=== PATIENT | male | born 1970 | race Caucasian/White ===

== ENCOUNTER 2024-02-10 11:23 | Observation (INO) | payer OTHER, BC, SELFPAY ==
[2024-02-10] VITALS (17 sets, daily range): BP systolic 107–134; BP diastolic 77–89; PULSE 58–91; RESP 12–24; TEMP 35.8–36.6; O2SAT 91–100; BMI 29.7
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
--- NOTE | ~2024-02-10 | CT_ITS ---
EXAMINATION: CT brain wo con DATE: 02/10/2024 12:09 INDICATION: Altered mental status TECHNIQUE: Computed tomography (CT) of the head was performed without intravenous contrast. Sagittal and coronal reconstructions were performed. The mA was adjusted according to patient size. Iterative reconstruction technique was employed. The dose-length product was 605.33 mGy-cm. COMPARISON: None FINDINGS: No acute intracranial hemorrhage, acute infarction or abnormal extra axial fluid collection. Ventricl es are normal and symmetric. Small macroscopic fat attenuation lipoma along the superior sagittal sin us. No other abnormal masses or mass effect. Changes of left intraocular lens replacement. The orient ation of the replaced lens does not appear to coincide with the dictation of the cornea suggesting po ssible displacement. Mild mucosal thickening in the paranasal sinuses. The mastoid air cells and midd le ear cavities are clear. There is some debris/cerumen at the right external auditory canal. IMPRESSION: 1. Normal brain. No acute intracranial process. 2. Suggestion of possible displacement or malalignment of a left intraocular lens replacement. Correl ate with ophthalmic exam. Reviewed, dictated and finalized at location A. IMPRESSION: 1. Normal brain. No acute intracranial process. 2. Suggestion of possible displacement or malalignment of a left intraocular le ns replacement. Correlate with ophthalmic exam.
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
--- NOTE | 2024-02-10 11:32 | ECG_ITS ---
SEE SCANNED COPY FOR CONFIRMED REPORT. MTDD
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
[2024-02-10 11:50] LABS: Hematocrit 45.1 % (42.0-52.0); Hemoglobin 14.4 g/dL (14.0-18.0); Mean Corpuscular HGB Conc 31.9 g/dl (32-36); Mean Corpuscular Hemoglobin 27.7 pg (26-34); Mean Corpuscular Volume 86.9 fl (80-100); Red Blood Count 5.19 M/mm3 (4.6-6.20)
[2024-02-10 11:51] LABS: Basophils Absolute Auto 0.1 K/mm3 (0.0-0.1); Basophils Percent Auto 0.6 % (0.2-1.2); Eosinophils Absolute Auto 0.3 K/mm3 (0-0.3); Eosinophils Percent Auto 3.9 % (0-4.4); Immature Granulocyte Absolute 0.34 K/mm3 (0.00-0.031); Immature Granulocyte Percent A 4.3 % (0-0.5); Lymphocytes Absolute Auto 1.99 K/mm3 (0.9-3.2); Mean Platelet Volume 9.5 fl (7.4-10.4); Monocytes Absolute Auto 0.4 K/mm3 (0.1-0.6); Monocytes Percent Auto 4.8 % (2.6-8.5); Neutrophils Absolute Auto 4.9 K/mm3 (1.3-6.7); Neutrophils Percent Auto 61.4 % (45.5-73.1); Platelet Count Result 221 k/mm3 (150-375); Red Cell Distribution Width 13.3 % (11.5-14.5)
--- NOTE | 2024-02-10 11:52 | PC.NURSE ---
Ccollar placed due to pt c/o neck pain.
[2024-02-10 11:59] LABS: Alanine Aminotransferase 21 U/L (6-50); Albumin Level 4.2 g/dL (3.5-5.1); Alkaline Phosphatase 91 U/L (38-126); Anion Gap 12 mmol/L (4-12); Aspartate Amino Transferase 24 U/L (17-59); Bilirubin,Total 0.5 mg/dL (0.2-1.3); Blood Urea Nitrogen 12 mg/dL (9-20); Calcium 8.7 mg/dL (8.4-10.2); Carbon Dioxide 22 mmol/L (22-30); Chloride 104 mmol/L (98-107); Estimated CRCL calculation 80 ml/min; Estimated Glomerular Filt Rate > 60; Glucose 235 mg/dL (65-110); Lipase 148 U/L (23-300); Sodium 138 mmol/L (137-145)
[2024-02-10 12:01] LABS: INR 0.9; Prothrombin Time 12.9 Seconds (11.1-14.7)
[2024-02-10 12:03] LABS: Partial Thromboplastin Time 23.2 Seconds (22.3-36.8)
[2024-02-10 12:05] LABS: Estimated CRCL calculation 74 ml/min; Estimated Glomerular Filt Rate 58
[2024-02-10 12:11] LABS: Troponin I < 0.012 ng/mL (0.000-0.034)
[2024-02-10 12:37] LABS: Lactic Acid Reflex 3.2 mmol/L (0.7-2.0)
--- NOTE | 2024-02-10 12:55 | PC.NURSE ---
came out to nurses station saying pt is getting sick. Pt dry heaving in bed. made aware.
[2024-02-10] MEDS: METOCLOPRAMIDE HCL INJ 10 MG/2 ML VIAL IV PUSH (12:58)
[2024-02-10] MEDS: SODIUM CHLORIDE 0.9% IV 1,000 ML 999 ML IV CONT (14:17)
--- NOTE | 2024-02-10 14:21 | PC.NURSE ---
Ccollar removed per EDP Dr. Patel
[2024-02-10 14:38] LABS: Amphetamine Screen Urine Negative (Negative); Barbiturate Screen Urine Negative (Negative); Benzodiazepines Screen Urine Negative (Negative); Cannabinoid Screen Urine Negative (Negative); Cocaine Screen Urine Negative (Negative); Methadone Screen Urine Negative (Negative); Opiate Screen Urine Negative (Negative); Phencyclidine Screen Urine Negative (Negative)
[2024-02-10 15:23] LABS: Reflex Lactic Acid Yes or No Add Lactic
[2024-02-10 15:46] LABS: Troponin I < 0.012 ng/mL (0.000-0.034)
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
--- NOTE | 2024-02-10 17:30 | ADMGEN ---
This patient, Zev Escalante, was admitted to IMU Room 231-01. Patient/family oriented to hospital policies and general routines including ID bracelet, bed and alarms, visiting hours, pain management, procedures, bathroom and other care routines, personal items, smoking policy, room service/diet, and visiting hours. Information on how to activate the Rapid Response Team has been discussed. Patient/Family are encouraged to report perceived risks to care and to ask questions if they do not understand what they are told or what they should do.
[2024-02-10 17:59] LABS: Lactic Acid 1.9 mmol/L (0.7-2.0)
[2024-02-10] MEDS: ACETAMINOPHEN 325 MG TABLET 650 MG PO (21:16)
[2024-02-10] MEDS: ONDANSETRON INJ 4 MG/2 ML VIAL IV PUSH (21:44)
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
[2024-02-11] VITALS (16 sets, daily range): BP systolic 102–135; BP diastolic 62–82; PULSE 48–77; RESP 12–18; TEMP 36.2–36.8; O2SAT 96–100
--- NOTE | 2024-02-11 | ECHO_ITS ---
Patient Info Name: Terry Escalante Age: 53 years : 1970 Gender: Male Ht: 72 in Wt: 244 lbs BSA: 2.40 m2 HR: 54 bpm BP: 109 / 71 mmHg Heart Rhythm: Sinus Rhythm Technical Quality: Fair Exam Date: 02/11/2024 12:16 PM Exam Location: Echo Lab Patient Status: Inpatient Admit Date: 02/10/2024 Staff Ordering Physician: Maximino Ashby DO Service Rig Operator: Preeti Medrano RDCS Attending Provider: Sun Sharpe MD Exam Type: CA echo doppler color flow Study Info Complete two-dimensional, color flow and Doppler transthoracic echocardiogram is performed. Summary 1. Complete two-dimensional, color flow and Doppler transthoracic echocardiogram is performed. 2. Left ventricular chamber dimension is normal. 3. Left ventricular systolic function is normal, estimated at 60-65%. 4. The left ventricular diastolic function is normal. 5. E/e' 4 is not elevated. 6. No pulmonary hypertension, estimated pulmonary arterial systolic pressure is 25 mmHg. Left Ventricle E/e' 4 is not elevated. Left ventricular chamber dimension is normal. Left ventricular systolic function is normal, estimated at 60-65%. The left ventricular diastolic function is normal. Right Ventricle Right ventricular systolic function is normal and with normal TAPSE 2.3 cm. Right ventricular chamber dimension is normal. Left Atria Left atrial chamber dimension is normal. Right Atria Right atrial chamber dimension is normal. Aortic Valve The aortic valve is trileaflet. There is no aortic valve stenosis. There is no aortic valve regurgitation. Pulmonic Valve There is no pulmonic regurgitation. Mitral Valve There is no mitral valve stenosis. There is no mitral valve regurgitation. Tricuspid Valve There is no tricuspid valve regurgitation. No pulmonary hypertension, estimated pulmonary arterial systolic pressure is 25 mmHg. Pericardium/Pleural There is no pericardial effusion. Inferior Vena Cava Normal inferior vena cava with >50% collapse upon inspiration consistent with normal right atrial pressure, 5 mmHg. Aorta The aortic root size at the sinus of Valsalva is normal. Left Ventricular Outflow Tract Name Value Normal LVOT 2D LVOT Diameter 2.4 cm LVOT Doppler LVOT Peak Gradient 3 mmHg LVOT Mean Gradient 2 mmHg LVOT VTI 15 cm LVOT VTI/AV VTI Ratio 0.8 LVOT Stroke Volume 67 ml LVOT CO 3.8 l/min LVOT CI 1.6 l/min/m2 Pulmonic Valve Name Value Normal RVOT Doppler RVOT Peak Gradient 2 mmHg PV Doppler PV Peak Gradient 4 mmHg Mitral Valve Name Value
--- NOTE | 2024-02-11 | EST_ITS ---
Patient Info Name: Zev Escalante Age: 53 years : 1970 Gender: Male Ht: 72 in Wt: 244 lbs BSA: 2.40 m2 HR: 53 bpm BP: 109 / 87 mmHg Heart Rhythm: Sinus Rhythm Exam Date: 02/11/2024 9:42 AM Exam Location: Echo Lab Patient Status: Outpatient Admit Date: 02/10/2024 Staff Ordering Physician: Maximino Ashby DO Attending Provider: Sun Sharpe MD Exercise Technologist: Maki Foley CT Exercise Physician: Maximino Ashby DO Exam Type: CA stress dee w NM Study Info Indications R55 - Syncope and collapse A regadenoson stress test was performed. Summary 1. 1. Negative lexiscan stress test for ischemic ST changes by ECG criteria. 2. 2. Stable hemodynamics throughout the test. 3. 3. Nuclear scan to follow and will be reported separately. Please correlate with it. 4. 4. Patient informed of the above results. Protocol: Lexiscan Stress ECG Details Stage: REST Duration (min): 1 min : 27 sec HR (bpm): 53 SBP (mmHg): 109 DBP (mmHg): 87 Stage: REST Duration (min): 12 min : 45 sec HR (bpm): 60 SBP (mmHg): 109 DBP (mmHg): 87 Stage: STAGE 1 Duration (min): 1 min : 0 sec HR (bpm): 78 SBP (mmHg): 114 DBP (mmHg): 70 Stage: RECOVERY Duration (min): 1 min : 0 sec HR (bpm): 80 SBP (mmHg): 114 DBP (mmHg): 70 Stage: RECOVERY Duration (min): 2 min : 0 sec HR (bpm): 76 SBP (mmHg): 114 DBP (mmHg): 70 Stage: RECOVERY Duration (min): 3 min : 0 sec HR (bpm): 72 SBP (mmHg): 121 DBP (mmHg): 72 Stage: RECOVERY Duration (min): 3 min : 2 sec HR (bpm): 72 SBP (mmHg): 121 DBP (mmHg): 72 Rest HR: 60 bpm Peak HR: 82 bpm Rest Sys BP: 109 mmHg Peak Sys BP: 121 mmHg Max Pred HR: 166 bpm % Max Pred HR: 49 % Target HR: 141 bpm Max RPP: 9,922 bpm*mmHg Termination Reason: Completed protocol Cardiac Symptoms: Shortness of breath Total Time: 1 min : 0 sec Rest Sesay BP: 87 mmHg Peak Sesay BP: 72 mmHg Total Dose: 0.4 mg Resting ECG Sinus rhythm. Stress ECG No ST changes. Arrhythmias None. Report Signatures
[2024-02-11] MEDS: ACETAMINOPHEN 325 MG TABLET 650 MG PO ×2 (03:20→11:45)
--- NOTE | 2024-02-11 07:40 | PM.PNCARD ---
Progress Note: A&P Assessment and Plan (1) Syncope: Qualifiers: Syncope type: unspecified Qualified Code(s): R55 - Syncope and collapse Code(s): R55 - Syncope and collapse Status: Acute Assessment and Plan: Differential includes arrhythmias, heart block, vasovagal, orthostasis, hypoglycemia, seizures, neurologic, etc. On telemetry with no arrhythmias or pauses. Obtain echo today. Obtain Lexiscan myoview today. If above are unremarkable, then will obtain 30 day event monitor upon discharge. (2) Dyslipidemia: Code(s): E78.5 - Hyperlipidemia, unspecified Status: Acute Assessment and Plan: On Lipitor at home. Subjective Date/time seen: 02/11/24 07:40 Interval history: He has headache. No chest pain or sob. Exam Const: General: cooperative, healthy appearing and comfortable Orientation/consciousness: oriented to person, oriented to place and oriented to time Resp: Auscultation: clear to auscultation bilaterally, no crackles, no rales, no rhonchi and no wheezes Cardio: Rate: regular rate Rhythm: regular rhythm Heart sounds: no murmurs Peripheral pulses: dorsalis pedis present Neuro: General: oriented to person, oriented to place and oriented to time Extrem: Right lower extremity: no edema Left lower extremity: no edema Objective Data Vital Signs Vital Signs: Vital Signs - 24 hr 02/10/24 11:21 02/10/24 11:48 02/10/24 12:26 Temperature 97.8 F Pulse Rate 84 79 80 Respiratory Rate 17 20 15 Blood Pressure 107/82 122/84 109/80 Pulse Oximetry 99 100 98 Oxygen Delivery Room Air Room Air 02/10/24 13:25 02/10/24 14:18 02/10/24 12:30 Temperature Pulse Rate 79 75 76 Respiratory Rate 15 20 12 Blood Pressure 118/89 Pulse Oximetry 98 100 99 Oxygen Delivery 02/10/24 13:15 02/10/24 14:19 02/10/24 14:31 Temperature Pulse Rate 69 70 74 Respiratory Rate 18 15 17 Blood Pressure 118/89 108/82 108/79 Pulse Oximetry 91 96 100 Oxygen Delivery 02/10/24 14:46 02/10/24 15:49 02/10/24 16:00 Temperature Pulse Rate 84 73 76 Respiratory Rate 19 15 13 Blood Pressure 112/77 Pulse Oximetry 94 98 98 Oxygen Delivery 02/10/24 17:10 02/10/24 18:00 02/10/24 20:10 Temperature 96.4 F L 97.1 F L Pulse Rate 91 74 69 Respiratory Rate 24 H 18 Blood Pressure 134/89 114/77 Pulse Oximetry 98 99 Oxygen Delivery 02/10/24 20:00 02/10/24 20:00 02/10/24 22:00 Temperature Pulse Rate 66 66 58 L Respiratory Rate 18 Blood Pressure Pulse Oximetry 99 Oxygen Delivery Room Air 02/11/24 00:09 02/11/24 00:00 02/11/24 00:00 Temperature 97.1 F L Pulse Rate 57 L 53 L 53 L Respiratory Rate 18 18 Blood Pressure 102/62 Pulse Oximetry 96 96 Oxygen Delivery Room Air 02/11/24 02:00 02/11/24 03:27 02/11/24 03:30 Temperature 97.6 F Pulse Rate 52 L 48 L 56 L Respiratory Rate 18 Blood Pressure 109/71 Pulse Oximetry 99 Oxygen Delivery 02/11/24 03:30 02/11/24 06:00 Temperature Pulse Rate 56 L 54 L Respiratory Rate 18 Blood Pressure Pulse Oximetry 99 Oxygen Delivery Room Air Intake/Output Intake/Output: Intake & Output 02/08/24 02/09/24 02/10/24 02/11/24 23:59 23:59 23:59 23:59 Intake Total 1250 100 Balance 1250 100 Meds/Results Medications: Active Medications Generic Name Dose Route Start Last Admin Trade Name Freq PRN Reason Stop Dose Admin Acetaminophen 650 mg 02/11/24 02:43 02/11/24 03:20 Acetaminophen 325 Mg Tablet PO 650 mg Q4H PRN Administration Mild Pain (1-3) or Fever Buspirone HCl 10 mg 02/11/24 09:00 Buspirone Hcl 10 Mg Tablet PO DAILY [facility] Enoxaparin Sodium 40 mg 02/11/24 09:00 Enoxaparin 40 Mg/0.4 Ml Syringe SUB-Q DAILY [facility] Hydroxyzine HCl 50 mg 02/11/24 09:00 Hydroxyzine Hcl 25 Mg Tablet PO DAILY [facility] Ibuprofen 600 mg 02/11/24 02:39 Ibuprofen 600 Mg Tablet PO Q6H PRN Pain Rated 4-6
[2024-02-11] MEDS: lamoTRIgine 100 MG TABLET PO (08:56)
[2024-02-11] MEDS: PANTOPRAZOLE 40 MG TABLET PO (08:56)
[2024-02-11] MEDS: busPIRone HCL 10 MG TABLET PO (08:57)
[2024-02-11] MEDS: SERTRALINE HCL 50 MG TABLET PO (08:57)
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
[2024-02-11] MEDS: hydrOXYzine HCL 25 MG TABLET 50 MG PO (11:40)
[2024-02-11 11:46] LABS: Hematocrit 42.9 % (42.0-52.0); Hemoglobin 13.7 g/dL (14.0-18.0); Mean Corpuscular HGB Conc 31.9 g/dl (32-36); Mean Corpuscular Volume 87.6 fl (80-100); Mean Platelet Volume 9.2 fl (7.4-10.4); Platelet Count Result 216 k/mm3 (150-375); Red Cell Distribution Width 13.6 % (11.5-14.5); White Blood Count 9.5 K/mm3 (4.5-10.0)
[2024-02-11 11:57] LABS: Anion Gap 8 mmol/L (4-12); Blood Urea Nitrogen 11 mg/dL (9-20); Carbon Dioxide 28 mmol/L (22-30); Chloride 102 mmol/L (98-107); Estimated CRCL calculation 105 ml/min; Estimated Glomerular Filt Rate > 60; Potassium 3.7 mmol/L (3.4-5.0); Sodium 138 mmol/L (137-145)
[2024-02-11 11:58] LABS: Alanine Aminotransferase 22 U/L (6-50); Albumin Level 4.5 g/dL (3.5-5.1); Alkaline Phosphatase 88 U/L (38-126); Aspartate Amino Transferase 27 U/L (17-59); Bilirubin,Total 0.5 mg/dL (0.2-1.3); Glucose 119 mg/dL (65-110); Magnesium 2.2 mg/dL (1.6-2.3)
[2024-02-11] MEDS: IBUPROFEN 600 MG TABLET PO (20:45)
[2024-02-12] VITALS (7 sets, daily range): BP systolic 114–131; BP diastolic 76–92; PULSE 49–71; RESP 17–18; TEMP 36.6; O2SAT 97–100
[2024-02-12 04:40] LABS: Hematocrit 41.8 % (42.0-52.0); Mean Corpuscular HGB Conc 31.1 g/dl (32-36); Mean Corpuscular Hemoglobin 27.7 pg (26-34); Mean Corpuscular Volume 89.1 fl (80-100); Mean Platelet Volume 9.4 fl (7.4-10.4); Platelet Count Result 213 k/mm3 (150-375); Red Blood Count 4.69 M/mm3 (4.6-6.20); Red Cell Distribution Width 13.3 % (11.5-14.5); White Blood Count 7.7 K/mm3 (4.5-10.0)
[2024-02-12 05:00] LABS: Alanine Aminotransferase 18 U/L (6-50); Albumin Level 3.9 g/dL (3.5-5.1); Alkaline Phosphatase 80 U/L (38-126); Anion Gap 5 mmol/L (4-12); Aspartate Amino Transferase 22 U/L (17-59); Bilirubin,Total 0.4 mg/dL (0.2-1.3); Blood Urea Nitrogen 12 mg/dL (9-20); Calcium 8.8 mg/dL (8.4-10.2); Carbon Dioxide 30 mmol/L (22-30); Chloride 105 mmol/L (98-107); Estimated CRCL calculation 95 ml/min; Estimated Glomerular Filt Rate > 60; Glucose 102 mg/dL (65-110); Potassium 4.2 mmol/L (3.4-5.0); Sodium 140 mmol/L (137-145)
--- NOTE | 2024-02-12 07:38 | PM.PNCARD ---
Progress Note: A&P Assessment and Plan (1) Syncope: Qualifiers: Syncope type: unspecified Qualified Code(s): R55 - Syncope and collapse Code(s): R55 - Syncope and collapse Status: Acute Assessment and Plan: Probably breakthrough seizure. Differential includes arrhythmias, heart block, vasovagal, orthostasis, hypoglycemia, seizures, neurologic, etc. On telemetry with no arrhythmias or pauses. 02/11/24 Echo: EF60-65%. 02/11/24 Lexiscan myoview is normal. 30 day event monitor placed. Neurology consulted. No further cardiac workup. May d/c home from cardiology standpoint and f/u in 4 weeks. (2) Dyslipidemia: Code(s): E78.5 - Hyperlipidemia, unspecified Status: Acute Assessment and Plan: On Lipitor at home. Subjective Date/time seen: 02/12/24 07:38 Interval history: No chest pain or sob. Exam Const: General: cooperative, healthy appearing and comfortable Orientation/consciousness: oriented to person, oriented to place and oriented to time Resp: Auscultation: clear to auscultation bilaterally, no crackles, no rales, no rhonchi and no wheezes Cardio: Rate: regular rate Rhythm: regular rhythm Heart sounds: no murmurs Peripheral pulses: dorsalis pedis present Neuro: General: oriented to person, oriented to place and oriented to time Extrem: Right lower extremity: no edema Left lower extremity: no edema Objective Data Vital Signs Vital Signs: Vital Signs - 24 hr 02/11/24 07:59 02/11/24 08:00 02/11/24 10:00 Temperature 97.9 F Pulse Rate 53 L 65 66 Respiratory Rate 12 Blood Pressure 106/68 Pulse Oximetry 98 Oxygen Delivery 02/11/24 12:00 02/11/24 12:00 02/11/24 14:00 Temperature 97.6 F Pulse Rate 62 77 70 Respiratory Rate 12 Blood Pressure 133/79 Pulse Oximetry 100 Oxygen Delivery 02/11/24 16:00 02/11/24 16:00 02/11/24 20:09 Temperature 98.3 F 97.9 F Pulse Rate 70 63 71 Respiratory Rate 16 18 Blood Pressure 130/79 135/82 Pulse Oximetry 99 96 Oxygen Delivery 02/11/24 20:00 02/11/24 20:00 02/11/24 23:53 Temperature 97.9 F Pulse Rate 60 60 64 Respiratory Rate 18 18 Blood Pressure 124/78 Pulse Oximetry 96 97 Oxygen Delivery Room Air 02/11/24 22:00 02/12/24 00:00 02/12/24 00:00 Temperature Pulse Rate 61 62 62 Respiratory Rate 18 Blood Pressure Pulse Oximetry 97 Oxygen Delivery Room Air 02/12/24 02:00 02/12/24 04:14 02/12/24 04:00 Temperature 97.9 F Pulse Rate 58 L 49 L 71 Respiratory Rate 18 Blood Pressure 114/76 Pulse Oximetry 97 Oxygen Delivery 02/12/24 04:00 02/12/24 06:00 Temperature Pulse Rate 71 58 L Respiratory Rate 18 Blood Pressure Pulse Oximetry 97 Oxygen Delivery Room Air Intake/Output Intake/Output: Intake & Output 02/09/24 02/10/24 02/11/24 02/12/24 23:59 23:59 23:59 23:59 Intake Total 1250 1360 750 Balance 1250 1360 750 Meds/Results Medications: Active Medications Generic Name Dose Route Start Last Admin Trade Name Freq PRN Reason Stop Dose Admin Acetaminophen 650 mg 02/11/24 02:43 02/11/24 11:45 Acetaminophen 325 Mg Tablet PO 650 mg Q4H PRN Administration Mild Pain (1-3) or Fever Buspirone HCl 10 mg 02/11/24 09:00 02/11/24 08:57 Buspirone Hcl 10 Mg Tablet PO 10 mg DAILY JS Administration Enoxaparin Sodium 40 mg 02/12/24 09:00 Enoxaparin 40 Mg/0.4 Ml Syringe SUB-Q DAILY [facility] Hydroxyzine HCl 50 mg 02/11/24 09:00 02/11/24 11:40 Hydroxyzine Hcl 25 Mg Tablet PO 50 mg DAILY [facility] Administration Ibuprofen 600 mg 02/11/24 02:39 02/11/24 20:45 Ibuprofen 600 Mg Tablet PO 600 mg Q6H PRN Administration Pain Rated 4-6 Lamotrigine 100 mg 02/11/24 09:00 02/11/24 08:56 Lamotrigine 100 Mg Tablet PO 100 mg DAILY JS Administration Ondansetron HCl 4 mg 02/10/24 21:14 02/10/24 21:44 Ondansetron Inj 4 Mg/2 Ml Vial IV PUSH 4 mg Q6H PRN
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
[2024-02-12] MEDS: lamoTRIgine 100 MG TABLET PO (10:22)
[2024-02-12] MEDS: PANTOPRAZOLE 40 MG TABLET PO (10:22)
[2024-02-12] MEDS: busPIRone HCL 10 MG TABLET PO (10:23)
[2024-02-12] MEDS: SERTRALINE HCL 50 MG TABLET PO (10:23)
[2024-02-12] MEDS: hydrOXYzine HCL 25 MG TABLET 50 MG PO (10:23)
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
[2024-02-15 08:48] LABS: Lamotrigine Lamictal 2.1 mcg/mL (2.5-15.0)
== END 2024-02-12 10:26 | disposition home or self-care (01) ==
LOC: ANHED 15:59 → ANHIMU 16:22
PROVIDERS: Nurse Practitioner Family; Admitting Provider Family Medicine; Emergency Provider Emergency Medicine; Visit Provider Family Medicine
DX: R55 Syncope and collapse (principal); R40.4 Transient alteration of awareness; V47.5XXA Car driver injured in collision with fixed or stationary object in traffic accident, initial encounter; E78.5 Hyperlipidemia, unspecified; G47.33 Obstructive sleep apnea (adult) (pediatric); N40.0 Benign prostatic hyperplasia without lower urinary tract symptoms; F31.9 Bipolar disorder, unspecified; F41.9 Anxiety disorder, unspecified; G40.909 Epilepsy, unspecified, not intractable, without status epilepticus; Z87.891 Personal history of nicotine dependence
CPT/HCPCS: 36415; 70450; 71275; 72125; 73030; 74174; 78452; 80053; 80175; 80307; 83605; 83690; 83735; 84443; 84484; 85025; 85027; 85610; 85730; 93005; 93017; 93306; 96361; 96374; 96375; 99285; A9270; A9502; G0378; J2405; J2765; J2785; J7030; L0140; Q9967